=== PATIENT | female | born 1935 | race Caucasian/White ===

== ENCOUNTER 2020-02-03 17:43 | Emergency (ER) | payer MEDICARE, OTHER ==
[~2020-02-03] VITALS: Ht 165.1 cm; Wt 70.5 kg
[2020-02-03 19:30] VITALS: BP 153/88
== END 2020-02-03 19:33 | disposition home or self-care (01) ==
LOC: ER 17:44
DX: R22.41 Localized swelling, mass and lump, right lower limb (principal); M19.90 Unspecified osteoarthritis, unspecified site; Z88.2 Allergy status to sulfonamides; Z88.5 Allergy status to narcotic agent; Z96.651 Presence of right artificial knee joint
CPT/HCPCS: 93971; 99284